=== PATIENT | female | born 1940 | race Hispanic/Latino ===

== ENCOUNTER 2017-11-30 09:18 | Inpatient (IN) | payer MEDICARE ==
[2017-11-29 12:40] LABS: BASOPHILS # (AUTO) 0.1 (0.0-0.1); BASOPHILS % 0.7 % (0.0-1.0); EOSINOPHILS # (AUTO) 0.2 (0.0-0.4); EOSINOPHILS % 2.4 % (0.0-6.0); HEMATOCRIT 37.1 % (34.2-44.1); HEMOGLOBIN 12.4 g/dL (12.0-16.0); LYMPHOCYTES # (AUTO) 2.3 (1.0-3.2); LYMPHOCYTES % 32.9 % (18.0-39.1); MEAN CORPUSCULAR HEMOGLOBIN 29.5 pg (28-32); MEAN CORPUSCULAR HGB CONC 33.4 g/dL (31-35); MEAN CORPUSCULAR VOLUME 88.3 fL (81-99); MONOCYTES # (AUTO) 0.5 (0.2-0.8); MONOCYTES % 6.9 % (4.4-11.3); PLATELET COUNT 323 x10e3/uL (140-360); RED CELL DISTRIBUTION WIDTH 12.3 % (11.7-14.4)
[2017-11-29 13:04] LABS: ANION GAP 11.3 mmol/L (8-16); CALCIUM 10.2 mg/dL (8.4-10.2); CREATININE, SERUM 1.05 mg/dL (0.57-1.11); POTASSIUM 4.3 mmol/L (3.5-5.1)
--- NOTE | 2017-11-29 14:38 | Diagnostic Imaging Report ---
PROCEDURE:CHEST 2 VIEWS TECHNIQUE:PA and lateral chest INDICATION:Preoperative evaluation for hip surgery COMPARISON:None. FINDINGS: Lungs are clear and symmetrically inflated. No pleural effusions. Normal heart size, mediastinal contour, and pulmonary vasculature. Intact skeleton. CONCLUSION: Normal chest. Dictated by: Oleg Nino M.D. on 11/29/2017 at 14:41 Electronically approved by: Oleg Nino M.D. on 11/29/2017 at 14:41
[~2017-11-30 09:18] MED LIST: GLIPIZIDE ER5 MG PO; LOSARTAN POTAS100 MG PO; NIFEDIPINE ER30 M1 PO; NORTRIPTYLINE H25 MG PO; ROPIVACAINE 246.25 MG, EPINEPHRINE HCL 1:1000 0.5 MG, CLONIDINE HCL 0.08 MG, KETOROLAC ... INJ ONE; SIMVASTATIN20 MG PO
--- OUTSIDE RECORDS SUMMARY | 2017-11-30 09:21 | XMS REPORT ---
Author Author [facility] Address Unknown Phone Unavailable Care Team Providers Care Suspender Cutter Name Role Phone YESSI TRIVEDI Unavailable Unavailable Problems This patient has no known problems. Allergies, Adverse Reactions, Alerts This patient has no known allergies or adverse reactions. Medications This patient has no known medications. Results Test Description Test Time Test Comments Text Results Atomic Results Result Comments CHEST 2 VIEWS [place] [address] Patient Name: LISA DEL REAL MR #: [id number] : 1940 Age/Sex: 77/F Req #: [id number] Adm Physician: Ordered by: YESSI TRIVEDI MD Report #: [id number] Location: OR Room/Bed: Procedure: [id number] DX/CHEST 2 VIEWS Exam Date: 11/29/17 Exam Time: 1310 REPORT STATUS: Signed PROCEDURE: CHEST 2 VIEWS TECHNIQUE: PA and lateral chest INDICATION: Preoperative evaluation for hip surgery COMPARISON: None. FINDINGS: Lungs are clear and symmetrically inflated. No pleural effusions. Normal heart size, mediastinal contour, and pulmonary vasculature. Intact skeleton. CONCLUSION: Normal chest. Dictated by: Ilda Adams M.D. on 11/29/2017 at 14: 41 Electronically approved by: Ilda Adams M.D. on 11/29/2017 at 14:41 Dictated By: ILDA ADAMS MD [id number] Transcribed By: JESSICA on 11/29/17 1441 COPY TO: YESSI TRIVEDI MD
[2017-11-30] MEDS ORDERED: CEFAZOLIN SOD 2 GM/D5W 50ML 50 ML IV ONE (09:45)
[2017-11-30] MEDS ORDERED: CELECOXIB 200 MG CAP ONE (09:45)
[2017-11-30] MEDS ORDERED: GABAPENTIN 300 MG CAP ONE (09:45)
[2017-11-30] MEDS ORDERED: DEXAMETHASONE SOD PHOS 10 MG/1 ML VIAL ONE (09:45)
[2017-11-30] MEDS ORDERED: INSULIN REGULAR, HUMAN 100 UNIT/1 ML 3ML VIAL ONE ×2 (10:30→15:12)
[2017-11-30] MEDS ORDERED: TRANEXAMIC ACID 1,000 MG/10 ML ML ONE ×2 (10:55→12:48)
[2017-11-30] MEDS ORDERED: MUPIROCIN 2% OINT 22 GM TUBE ONE (10:55)
[2017-11-30] MEDS ORDERED: BACITRACIN 50,000 UNIT VIAL ONE (10:56)
[2017-11-30] MEDS ORDERED: LIDOCAINE 2% /EPINEPHRINE 20 ML SDV INJ ONE (12:24)
[2017-11-30] MEDS ORDERED: SODIUM CHLORIDE 0.9% 1000ML 1,000 ML IV SCH (13:20)
[2017-11-30] MEDS ORDERED: HYDROCODONE/APAP 5MG-325MG TAB PO PRN (13:30)
[2017-11-30] MEDS ORDERED: KETOROLAC TROMETHAMINE 30 MG/ML VIAL IV PRN (13:30)
[2017-11-30] MEDS ORDERED: ONDANSETRON HCL INJ 2 MG/ML VIAL IV PRN (13:30)
[2017-11-30] MEDS ORDERED: PROMETHAZINE HCL (IM) 25 MG/ML VIAL INJ PRN (13:30)
[2017-11-30] MEDS ORDERED: ACETAMINOPHEN 650 MG SUPP PR PRN (13:30)
[2017-11-30] MEDS ORDERED: DOCUSATE SODIUM 100 MG CAP PO PRN (13:30)
[2017-11-30] MEDS ORDERED: DIPHENHYDRAMINE HCL INJ 50 MG/ML VIAL IM/IV PRN (13:30)
[2017-11-30] MEDS ORDERED: HYDROCODONE/APAP 7.5MG-325MG 1 EA TAB PO PRN (13:30)
[2017-11-30] MEDS ORDERED: ZOLPIDEM TARTRATE 5 MG TAB PO PRN (13:30)
[2017-11-30] MEDS ORDERED: CEFAZOLIN SOD 1 GM/NS 50ML 50 ML IV SCH (14:00)
[2017-11-30 16:00] VITALS: BP 141/69
[2017-11-30 16:22] VITALS: BP 141/69
[2017-11-30] MEDS: ASPIRIN 325 MG TAB PO SCH (17:00)
[2017-11-30] MEDS: CELECOXIB 200 MG CAP PO SCH (17:00)
[2017-11-30] MEDS ORDERED: CELECOXIB 100 MG CAP PO SCH (17:00)
--- NOTE | 2017-11-30 17:10 | Diagnostic Imaging Report ---
PROCEDURE:X-RAY PELVIS, AP VIEW COMPARISON:None. INDICATIONS:S/P RT. TOTALHIP ARTHROPLASTY. FINDINGS: See Conclusion. CONCLUSION: 1. Status post right total hip replacement with intact hardware which appears in satisfactory alignment in this single view. 2. Associated postoperative soft tissue gas, drainage catheter and metallic gumaro in the soft tissues. 3. Rest of the bony structures is intact. No fractures, lytic or blastic lesions. Dave Vigil M.D. Dictated by: Dave Vigil M.D. on 11/30/2017 at 17:12 Electronically approved by: Dave Vigil M.D. on 11/30/2017 at 17:12
[2017-11-30] MEDS: ACETAMINOPHEN 1000 MG/100 ML IV SCH (18:00)
[2017-11-30] MEDS ORDERED: ONDANSETRON HCL INJ 2 MG/ML VIAL ONE (18:53)
[2017-11-30 20:00] VITALS: BP 152/70
[2017-11-30] MEDS: CEFAZOLIN SOD 1 GM VIAL IV SCH (20:00)
[2017-11-30 20:05] VITALS: BP 152/70
[2017-11-30] MEDS ORDERED: MIDAZOLAM HCL 2 MG/2 ML VIAL ONE (20:15)
[2017-11-30] MEDS ORDERED: KETAMINE HCL INJ 50 MG/ML 10 ML VIAL ONE (20:15)
[2017-11-30] MEDS ORDERED: FENTANYL CITRATE/PF 100MCG/2 ML INJ ONE (20:15)
[2017-12-01] VITALS: BP 113/60
[2017-12-01] MEDS: ACETAMINOPHEN 1000 MG/100 ML IV SCH ×3 (00:03→12:13)
[2017-12-01 04:00] VITALS: BP 132/60
[2017-12-01] MEDS: CEFAZOLIN SOD 1 GM VIAL IV SCH ×2 (04:35→12:13)
[2017-12-01 06:46] LABS: HEMATOCRIT 33.1 % (34.2-44.1); HEMOGLOBIN 11.1 g/dL (12.0-16.0)
[2017-12-01 07:20] VITALS: BP 139/63
[2017-12-01 08:05] VITALS: BP 139/63
[2017-12-01] MEDS ORDERED: ASPIRIN325 MG PO (08:59)
[2017-12-01] MEDS ORDERED: GLIPIZIDE 5 MG TAB ER PO SCH (09:00)
[2017-12-01] MEDS: ASPIRIN 325 MG TAB PO SCH (09:49)
[2017-12-01] MEDS: CELECOXIB 200 MG CAP PO SCH (09:49)
--- NOTE | 2017-12-01 10:04 | Operative Report ---
DATE OF PROCEDURE: November 30, 2017 PREOPERATIVE DIAGNOSIS: Osteoarthritis, right hip. POSTOPERATIVE DIAGNOSIS: Osteoarthritis, right hip. PROCEDURE: Right total hip arthroplasty. FIBERGLASS FABRICATOR: Joel Del Rosario PA-C The patient was brought to the operating room for induction of anesthesia. Throughout this case, my PA's assistance was necessary for retraction of soft tissue and positioning of the extremity. This allows for efficient and technically successful execution of the operation and is considered medically necessary. 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 She has failed conservative management and would like to proceed with a right total hip replacement. The risks and benefits of the procedure have been explained. All of her questions have been answered. She states she understands and wishes to proceed. DESCRIPTION OF PROCEDURE: The patient was brought to the operating room and given a spinal anesthetic. She received prophylactic antibiotics and tranexamic acid in the holding area. She was positioned in the left lateral decubitus position. Her right hip was prepped and draped in a sterile manner. A preoperative time out was performed. A limited incision posterior approach was made to the right hip. Hemostasis was obtained with electrocautery. Abundant subcutaneous adipose was encountered. A self-retaining deep Charnley retractor was placed. Care was taken to avoid injury to the sciatic nerve. The posterior capsule and short external rotators were carefully exposed. Additional hemostasis was obtained with electrocautery. The posterior capsule was released and the hip was dislocated. An oscillating saw was used to resect the femoral head. A complete loss of articular cartilage was noted. Acetabular retractors were carefully placed. The labral remnant was removed with a long-handle knife. The true floor of the acetabulum was then established with a 44-mm reamer. The socket was then carefully reamed up to 51 mm. This accomplished bleeding hemispherical cancellous bone. Two small subchondral cysts were debrided in the superior dome of the socket. The hip was thoroughly irrigated with a shower-tip pulsatile lavage. A [employer] Osseo[employer] acetabular socket was then seated. This had a 52-mm outer diameter. Fixation was good when augmented with a single 20-mm screw placed into the ilium. A highly cross-linked polyethylene liner with a 36-mm inner diameter was then seated into place. Care was taken to make sure that there was no evidence of soft tissue interposition. A portion of a 100 mL premixed pericapsular injection was then placed around this socket. The socket was placed with a moistly soaked lap sponge and attention was directed towards the proximal femur. A box-cutting osteotome and taper pin reamer was used to establish entry to the femoral canal. The [employer] Taperloc broaches were then impacted. A size 9 stem had good stability for trial reductions. A -3 femoral head was felt to provide optimal soft tissue balancing, adventism of limb length, and stability. The hip was put through a full arc of motion and had good stability. The trial implants were removed. The hip was further irrigated with a shower-tip pulsatile lavage. The implants were seated and a final reduction was performed. A 36-mm ceramic head was used. The remainder of the pericapsular injection was placed into the soft tissue. The posterior capsule was then carefully repaired with #2 Ethibond. The short external rotators were contracted and not repairable. The gluteal fascia was then closed with interrupted #2 Ethibond. The skin was closed with subcuticular Vicryl and gumaro. A sterile bandage was applied. The patient was returned to the supine position and transported to the recovery room in stable condition. Job#: [id number] DR NEVAREZ
[2017-12-01 12:42] VITALS: BP 143/82
[2017-12-01] MEDS ORDERED: ACETAMINOPHEN 1000 MG/100 ML IV PRN (13:30)
[2017-12-01 16:25] VITALS: BP 148/67
[2017-12-01] MEDS ORDERED: NIFEDIPINE CR 30 MG TAB PO SCH (21:00)
[2017-12-01] MEDS ORDERED: LOSARTAN POTASSIUM 100 MG TAB PO SCH (21:00)
[2017-12-01] MEDS ORDERED: SIMVASTATIN 20 MG TAB PO SCH (21:00)
[2017-12-01] MEDS ORDERED: NORTRIPTYLINE HCL 25 MG CAP PO SCH (21:00)
== END 2017-12-01 15:45 | disposition home health service (06) | DRG 470 ==
LOC: OR 09:18 → MED/SURG 15:01
PROVIDERS: ADMIT Specialist; ATTEND Specialist
PROC: 0SR904A Replacement of Right Hip Joint with Ceramic on Polyethylene Synthetic Substitute, Uncemented, Open Approach (ICD-10-PCS; principal; 2017-11-30 11:55)
DX: M16.11 Unilateral primary osteoarthritis, right hip (principal); M17.11 Unilateral primary osteoarthritis, right knee; I10 Essential (primary) hypertension; D64.9 Anemia, unspecified; E11.9 Type 2 diabetes mellitus without complications; Z79.4 Long term (current) use of insulin; Z86.73 Personal history of transient ischemic attack (TIA), and cerebral infarction without residual deficits
CPT/HCPCS: 36415; 71046; 72170; 80048; 82948; 85014; 85018; 85025; 93005; J0171; J0690; J1100; J1885; J2001; J2250; J2405; J2795

== ENCOUNTER 2020-06-29 11:36 | Emergency (ER) | payer MEDICARE, OTHER ==
[~2020-06-29] VITALS: Ht 157.5 cm; Wt 75.7 kg
[~2020-06-29 11:36] MED LIST changes: +ASPIRIN325 MG PO; -ROPIVACAINE 246.25 MG, EPINEPHRINE HCL 1:1000 0.5 MG, CLONIDINE HCL 0.08 MG, KETOROLAC ... INJ ONE
[2020-06-29] MEDS ORDERED: SODIUM CHLORIDE 0.9% 1000ML 1,000 ML IV STA (12:00)
[2020-06-29] MEDS ORDERED: ONDANSETRON HCL INJ 2MG/ML 2ML 2 MG/ML VIAL IV STA (12:00)
[2020-06-29] MEDS ORDERED: MORPHINE SULFATE INJ 4 MG/ML INJ 1ML IV PRN (12:00)
[2020-06-29] MEDS ORDERED: CLONIDINE HCL0.1 MG PO (12:13)
[2020-06-29] MEDS ORDERED: CLONIDINE HCL 0.2 MG TAB PO ONE (12:15)
== END 2020-06-29 14:15 | disposition home or self-care (01) ==
LOC: ER 12:00
DX: I10 Essential (primary) hypertension (principal); E11.9 Type 2 diabetes mellitus without complications
CPT/HCPCS: 99283

== ENCOUNTER 2020-07-04 20:28 | Emergency (ER) | payer MEDICARE, OTHER ==
[~2020-07-04] VITALS: Ht 157.5 cm; Wt 75.7 kg
[~2020-07-04 20:28] MED LIST changes: +CLONIDINE HCL0.1 MG PO
[2020-07-04] MEDS ORDERED: AMLODIPINE BESYLATE 5 MG TAB PO ONE ×2 (20:45→22:45)
[2020-07-04 21:01] LABS: BASOPHILS % 0.6 % (0.0-1.0); EOSINOPHILS # (AUTO) 0.2 (0.0-0.4); EOSINOPHILS % 2.7 % (0.0-6.0); HEMATOCRIT 37.1 % (34.2-44.1); HEMOGLOBIN 12.7 g/dL (12.0-16.0); LYMPHOCYTES # (AUTO) 2.2 (1.0-3.2); LYMPHOCYTES % 33.9 % (18.0-39.1); MEAN CORPUSCULAR HEMOGLOBIN 28.7 pg (28-32); MEAN CORPUSCULAR HGB CONC 34.2 g/dL (31-35); MEAN CORPUSCULAR VOLUME 83.9 fL (81-99); MONOCYTES # (AUTO) 0.6 (0.2-0.8); MONOCYTES % 9.2 % (4.4-11.3); NEUTROPHILS # (AUTO) 3.5 (2.1-6.9); NEUTROPHILS % 53.1 % (38.7-80.0); PLATELET COUNT 317 x10e3/uL (140-360); RED BLOOD COUNT 4.42 x10e6/uL (3.6-5.1); RED CELL DISTRIBUTION WIDTH 13.2 % (11.7-14.4)
[2020-07-04 21:02] LABS: CLARITY,URINE SL CLOUDY (CLEAR); COLOR,URINE YELLOW (YELLOW); LEUKOCYTE ESTERASE ,URINE MODERATE (NEGATIVE); NITRITE,URINE NEGATIVE (NEGATIVE); PROTEIN,URINE DIPSTICK 1+ (NEGATIVE)
[2020-07-04 21:03] LABS: KETONES,URINE 1+ (NEGATIVE); URINE UROBILINOGEN 2 mg/dL (0.2 - 1)
[2020-07-04 21:16] LABS: AMORPHOUS SEDIMENT,URINE MODERATE (FEW); BACTERIA,URINE MODERATE /HPF; EPITHELIAL CELLS,URINE FEW /LPF; MUCUS,URINE MODERATE (RARE); RBC,URINE 0-5 /HPF (0-5)
[2020-07-04 21:20] LABS: ALBUMIN 3.7 g/dL (3.5-5.0); ALBUMIN/GLOBULIN RATIO 1.3 (0.8-2.0); ANION GAP 12.2 mmol/L (8-16); CALCIUM 9.1 mg/dL (8.4-10.2); CREATININE, SERUM 1.03 mg/dL (0.57-1.11); POTASSIUM 4.2 mmol/L (3.5-5.1)
[2020-07-04] MEDS ORDERED: CEFTRIAXONE SOD 1 GM/NS 50 ML 50 ML IV ONE (22:00)
[2020-07-04] MEDS ORDERED: SODIUM CHLORIDE 0.9% 500ML 500 ML IV STA (22:41)
[2020-07-05] MEDS ORDERED: KEFLEX500 MG PO (00:19)
[2020-07-05 00:29] VITALS: BP 164/57
== END 2020-07-05 00:37 | disposition home or self-care (01) ==
LOC: ER 20:58
DX: N39.0 Urinary tract infection, site not specified (principal); E11.65 Type 2 diabetes mellitus with hyperglycemia; I10 Essential (primary) hypertension; R07.89 Other chest pain; E03.9 Hypothyroidism, unspecified
CPT/HCPCS: 36415; 70450; 71045; 80053; 81001; 83690; 84484; 85025; 87086; 93005; 99284; J0696; J7040

== ENCOUNTER 2020-08-21 21:33 | Inpatient (IN) | payer MEDICARE, OTHER ==
[~2020-08-21] VITALS: Ht 157.5 cm; Wt 75.7 kg
[~2020-08-21 21:33] MED LIST changes: +KEFLEX500 MG PO
[2020-08-21] MEDS ORDERED: MORPHINE SULFATE INJ 4 MG/ML INJ 1ML IV STA (21:57)
[2020-08-21] MEDS ORDERED: SODIUM CHLORIDE 0.9% 1000ML 1,000 ML IV STA (21:57)
[2020-08-21] MEDS ORDERED: ONDANSETRON HCL INJ 2MG/ML 2ML 2 MG/ML VIAL IV STA (21:57)
[2020-08-21 22:04] LABS: BASOPHILS % 0.4 % (0.0-1.0); EOSINOPHILS # (AUTO) 0.1 (0.0-0.4); EOSINOPHILS % 1.1 % (0.0-6.0); HEMATOCRIT 42.1 % (34.2-44.1); HEMOGLOBIN 14.5 g/dL (12.0-16.0); LYMPHOCYTES # (AUTO) 1.8 (1.0-3.2); LYMPHOCYTES % 23.6 % (18.0-39.1); MEAN CORPUSCULAR HEMOGLOBIN 28.5 pg (28-32); MEAN CORPUSCULAR HGB CONC 34.4 g/dL (31-35); MEAN CORPUSCULAR VOLUME 82.9 fL (81-99); MONOCYTES # (AUTO) 0.6 (0.2-0.8); MONOCYTES % 7.4 % (4.4-11.3); NEUTROPHILS % 67.2 % (38.7-80.0); PLATELET COUNT 336 x10e3/uL (140-360); RED BLOOD COUNT 5.08 x10e6/uL (3.6-5.1); RED CELL DISTRIBUTION WIDTH 12.4 % (11.7-14.4)
[2020-08-21 22:29] LABS: ALBUMIN 4.1 g/dL (3.5-5.0); ALBUMIN/GLOBULIN RATIO 1.3 (0.8-2.0); ANION GAP 17.1 mmol/L (8-16); CALCIUM 9.3 mg/dL (8.4-10.2); CREATININE, SERUM 0.92 mg/dL (0.57-1.11); POTASSIUM 4.1 mmol/L (3.5-5.1)
[2020-08-21 22:35] LABS: CREATINE KINASE MB 4.8 ng/mL (0-5.0)
[2020-08-21] MEDS ORDERED: IOPAMIDOL 370 MG/ML 200 ML INFUS..BTL INJ ONE (22:58)
[2020-08-21] MEDS ORDERED: SODIUM CHLORIDE 0.9% 50ML 50 ML ONE (22:58)
[2020-08-21] MEDS ORDERED: MORPHINE SULFATE INJ 4 MG/ML INJ 1ML IV PRN (23:45)
[2020-08-22] VITALS (10 sets, daily range): BP systolic 143–176; BP diastolic 46–57
[2020-08-22] MEDS ORDERED: ONDANSETRON HCL INJ 2MG/ML 2ML 2 MG/ML VIAL IV PRN
[2020-08-22 01:12] LABS: CLARITY,URINE SL CLOUDY (CLEAR); COLOR,URINE YELLOW (YELLOW); KETONES,URINE 2+ (NEGATIVE); LEUKOCYTE ESTERASE ,URINE SMALL (NEGATIVE); NITRITE,URINE NEGATIVE (NEGATIVE); PROTEIN,URINE DIPSTICK >=300 (NEGATIVE); URINE UROBILINOGEN 1 mg/dL (0.2 - 1)
[2020-08-22 01:20] LABS: BACTERIA,URINE FEW /HPF; EPITHELIAL CELLS,URINE MODERATE /LPF; MUCUS,URINE MODERATE (RARE); WBC,URINE (MAN) 21-50 /HPF (0-5)
[2020-08-22] MEDS ORDERED: HYDRALAZINE HCL 20 MG/ML VIAL IV STA (01:20)
[2020-08-22] MEDS: SODIUM CHLORIDE 0.9% 1000ML 1,000 ML IV SCH ×3 (02:18→16:00)
[2020-08-22] MEDS ORDERED: HYDRALAZINE HCL 20 MG/ML VIAL IV PRN (03:15)
[2020-08-22 07:15] LABS: BASOPHILS % 0.5 % (0.0-1.0); EOSINOPHILS # (AUTO) 0.1 (0.0-0.4); EOSINOPHILS % 1.7 % (0.0-6.0); HEMATOCRIT 36.4 % (34.2-44.1); HEMOGLOBIN 12.5 g/dL (12.0-16.0); LYMPHOCYTES # (AUTO) 2.1 (1.0-3.2); LYMPHOCYTES % 28.6 % (18.0-39.1); MEAN CORPUSCULAR HEMOGLOBIN 28.4 pg (28-32); MEAN CORPUSCULAR HGB CONC 34.3 g/dL (31-35); MEAN CORPUSCULAR VOLUME 82.7 fL (81-99); MONOCYTES # (AUTO) 0.7 (0.2-0.8); MONOCYTES % 9.6 % (4.4-11.3); NEUTROPHILS # (AUTO) 4.4 (2.1-6.9); NEUTROPHILS % 59.2 % (38.7-80.0); PLATELET COUNT 305 x10e3/uL (140-360); RED CELL DISTRIBUTION WIDTH 12.6 % (11.7-14.4)
[2020-08-22] MEDS ORDERED: DOCUSATE SODIUM 100 MG CAP PO PRN (07:30)
[2020-08-22 07:40] LABS: ALANINE AMINOTRANSFERASE 17 IU/L (0-55); ALBUMIN 3.4 g/dL (3.5-5.0); ALBUMIN/GLOBULIN RATIO 1.4 (0.8-2.0); ALKALINE PHOSPHATASE 63 IU/L (40-150); ANION GAP 10.6 mmol/L (8-16); BLOOD UREA NITROGEN 8 mg/dL (7-26); BUN/CREATININE RATIO 10 (6-25); CALCIUM 8.5 mg/dL (8.4-10.2); CARBON DIOXIDE 22 mmol/L (22-29); CHLORIDE 100 mmol/L (98-107); CREATININE, SERUM 0.81 mg/dL (0.57-1.11); EST GLOMERULAR FILTRATION RATE > 60 ML/MIN (60-); GLUCOSE 86 mg/dL (74-118); POTASSIUM 3.6 mmol/L (3.5-5.1); SODIUM 129 mmol/L (136-145)
[2020-08-22 07:49] LABS: CREATINE KINASE MB 3.6 ng/mL (0-5.0)
[2020-08-22 08:07] LABS: CHOL/HDL RATIO 6.2 (3.0-3.6)
[2020-08-22] MEDS: CEFTRIAXONE SOD 1 GM in SODIUM CHLORIDE 0.9% 50ML 50 ML IV SCH (08:59)
[2020-08-22] MEDS: NIFEDIPINE CR 30 MG TAB PO SCH ×2 (09:00→21:48)
[2020-08-22 15:47] LABS: CREATINE KINASE MB 2.5 ng/mL (0-5.0)
[2020-08-22] MEDS ORDERED: NIFEDIPINE CR 30 MG TAB PO SCH (21:00)
[2020-08-22] MEDS ORDERED: ZOLPIDEM TARTRATE 5 MG TAB PO PRN (21:00)
[2020-08-22] MEDS: SIMVASTATIN 20 MG TAB PO SCH (21:49)
[2020-08-22] MEDS: NORTRIPTYLINE HCL 25 MG CAP PO SCH (21:49)
[2020-08-23 04:03] VITALS: BP 136/48
[2020-08-23] MEDS: SODIUM CHLORIDE 0.9% 1000ML 1,000 ML IV SCH ×3 (08:00→13:37)
[2020-08-23 08:10] VITALS: BP 136/48
[2020-08-23 08:55] VITALS: BP 124/41
[2020-08-23] MEDS: NIFEDIPINE CR 30 MG TAB PO SCH ×2 (09:00→16:38)
[2020-08-23] MEDS: CEFTRIAXONE SOD 1 GM in SODIUM CHLORIDE 0.9% 50ML 50 ML IV SCH (09:02)
[2020-08-23 12:00] VITALS: BP 124/41
[2020-08-23] MEDS ORDERED: FENTANYL CITRATE/PF 100MCG/2 ML INJ ONE (12:10)
[2020-08-23] MEDS ORDERED: PROPOFOL IV EMULSION 10 MG/ML 20 ML VIAL ONE (17:38)
[2020-08-23 20:00] VITALS: BP 149/43
[2020-08-23 21:00] VITALS: BP 149/43
[2020-08-23] MEDS: SIMVASTATIN 20 MG TAB PO SCH (21:01)
[2020-08-23] MEDS: NORTRIPTYLINE HCL 25 MG CAP PO SCH (21:01)
[2020-08-24] VITALS: BP 141/49
[2020-08-24] MEDS: SODIUM CHLORIDE 0.9% 1000ML 1,000 ML IV SCH ×2 (00:30→08:58)
[2020-08-24 04:00] VITALS: BP 146/53
[2020-08-24 08:00] VITALS: BP 136/45
[2020-08-24 08:02] VITALS: BP 146/53
[2020-08-24] MEDS: CEFTRIAXONE SOD 1 GM in SODIUM CHLORIDE 0.9% 50ML 50 ML IV SCH (08:58)
[2020-08-24 12:00] VITALS: BP 176/59
[2020-08-24] MEDS: NIFEDIPINE CR 30 MG TAB PO SCH (12:00)
[2020-08-24] MEDS ORDERED: SODIUM CHLORIDE1 GM PO (15:16)
[2020-08-24] MEDS ORDERED: NIFEDIPINE ER30 M1 PO (15:16)
== END 2020-08-24 16:52 | disposition home or self-care (01) | DRG 392 ==
LOC: ER 21:57 → ERHOLD 23:46 → MED/SURG2 08-22 03:15
PROVIDERS: ADMIT Internal Medicine; ATTEND Internal Medicine
PROC: 0DB68ZX Excision of Stomach, Via Natural or Artificial Opening Endoscopic, Diagnostic (ICD-10-PCS; 2020-08-23)
PROC: 0D758ZZ Dilation of Esophagus, Via Natural or Artificial Opening Endoscopic (ICD-10-PCS; 2020-08-23)
PROC: 0DB98ZX Excision of Duodenum, Via Natural or Artificial Opening Endoscopic, Diagnostic (ICD-10-PCS; principal; 2020-08-23 13:00)
PROC: 0DB78ZX Excision of Stomach, Pylorus, Via Natural or Artificial Opening Endoscopic, Diagnostic (ICD-10-PCS; 2020-08-23 13:00)
DX: K20.90 Esophagitis, unspecified without bleeding (principal); E87.1 Hypo-osmolality and hyponatremia; N17.9 Acute kidney failure, unspecified; N39.0 Urinary tract infection, site not specified; K29.70 Gastritis, unspecified, without bleeding; E11.9 Type 2 diabetes mellitus without complications; K52.9 Noninfective gastroenteritis and colitis, unspecified; I10 Essential (primary) hypertension; E03.9 Hypothyroidism, unspecified; K31.7 Polyp of stomach and duodenum; K63.5 Polyp of colon
CPT/HCPCS: 36415; 43239; 43450; 71045; 74177; 80053; 80061; 81001; 82550; 82553; 82948; 83036; 83690; 83880; 84295; 84484; 85025; 88305; 88312; 93005; 96361; 99284; J0360; J0696; J2405; J3010; J7030; Q9967; U0002

== ENCOUNTER 2021-09-06 21:19 | Inpatient (IN) | payer MEDICARE, OTHER ==
[~2021-09-06] VITALS: Ht 157.5 cm; Wt 75.7 kg
[~2021-09-06 21:19] MED LIST changes: +SODIUM CHLORIDE1 GM PO
[2021-09-06] MEDS ORDERED: HYDRALAZINE HCL 20 MG/ML VIAL IV STA ×2 (21:34→22:49)
[2021-09-06 21:36] LABS: BASOPHILS % 0.1 % (0.0-1.0); HEMATOCRIT 33.8 % (34.2-44.1); HEMOGLOBIN 11.6 g/dL (12.0-16.0); LYMPHOCYTES # (AUTO) 1.5 (1.0-3.2); LYMPHOCYTES % 10.8 % (18.0-39.1); MEAN CORPUSCULAR HEMOGLOBIN 29.3 pg (28-32); MEAN CORPUSCULAR HGB CONC 34.3 g/dL (31-35); MEAN CORPUSCULAR VOLUME 85.4 fL (81-99); MONOCYTES # (AUTO) 0.9 (0.2-0.8); NEUTROPHILS # (AUTO) 11.8 (2.1-6.9); NEUTROPHILS % 82.4 % (38.7-80.0); PLATELET COUNT 315 x10e3/uL (140-360); RED BLOOD COUNT 3.96 x10e6/uL (3.6-5.1); RED CELL DISTRIBUTION WIDTH 12.6 % (11.7-14.4)
[2021-09-06 21:45] LABS: INR 0.89; PARTIAL THROMBOPLASTIN TIME 23.3 seconds (23.8-35.5); PROTHROMBIN TIME 12.9 seconds (11.9-14.5)
[2021-09-06] MEDS ORDERED: HYDRALAZINE HCL 20 MG/ML VIAL ONE (21:50)
[2021-09-06 21:54] LABS: ALBUMIN 3.6 g/dL (3.5-5.0); ALBUMIN/GLOBULIN RATIO 1.1 (0.8-2.0); ANION GAP 10.2 mmol/L (8-16); CALCIUM 9.8 mg/dL (8.4-10.2); CREATININE, SERUM 1.23 mg/dL (0.57-1.11); POTASSIUM 4.2 mmol/L (3.5-5.1)
[2021-09-06 22:01] LABS: CREATINE KINASE MB 2.7 ng/mL (0-5.0)
[2021-09-06 22:20] LABS: CLARITY,URINE CLEAR (CLEAR); COLOR,URINE STRAW (YELLOW); KETONES,URINE NEGATIVE (NEGATIVE); LEUKOCYTE ESTERASE ,URINE TRACE (NEGATIVE); NITRITE,URINE NEGATIVE (NEGATIVE); PROTEIN,URINE DIPSTICK 2+ (NEGATIVE); URINE UROBILINOGEN 0.2 mg/dL (0.2 - 1)
[2021-09-06 22:21] LABS: BACTERIA,URINE MODERATE /HPF; EPITHELIAL CELLS,URINE MANY /LPF; RENAL EPITHELIAL CELLS,URINE MODERATE
[2021-09-06] MEDS ORDERED: IOPAMIDOL 370 MG/ML 200 ML INFUS..BTL INJ ONE (22:37)
[2021-09-06] MEDS ORDERED: SODIUM CHLORIDE 0.9% 50ML 50 ML ONE (22:38)
[2021-09-06] MEDS ORDERED: Morphine 4mg Syringe 4 MG/ML INJ IV ONE (23:30)
[2021-09-06] MEDS ORDERED: FUROSEMIDE INJ 10 MG/ML 4 ML VIAL IV ONE (23:30)
[2021-09-06] MEDS ORDERED: CEFTRIAXONE 1 GM in SODIUM CHLORIDE 0.9% 50ML 50 ML IV ONE (23:30)
[2021-09-07] VITALS (8 sets, daily range): BP systolic 146–193; BP diastolic 39–64
[2021-09-07] MEDS ORDERED: ASPIRIN 325 MG TAB PO ONE (00:30)
[2021-09-07] MEDS ORDERED: ONDANSETRON HCL INJ 2MG/ML 2ML 2 MG/ML VIAL IV PRN (00:30)
[2021-09-07] MEDS ORDERED: OLMESARTAN-HCT1 EAC2 PO (01:55)
[2021-09-07] MEDS ORDERED: LEVOTHYROXINE25 MC1 PO (01:55)
[2021-09-07] MEDS ORDERED: PANTOPRAZOLE SO40 MG PO (01:55)
[2021-09-07] MEDS ORDERED: METOPROLOL SUCC50 MG PO (01:55)
[2021-09-07] MEDS ORDERED: Morphine 2mg Syringe 2 MG/ML SYR IV PRN (03:00)
[2021-09-07] MEDS: HYDRALAZINE HCL 20 MG/ML VIAL IV PRN (03:08)
[2021-09-07 08:01] LABS: CREATINE KINASE MB 2.1 ng/mL (0-5.0)
[2021-09-07] MEDS ORDERED: DOCUSATE SODIUM 100 MG CAP PO PRN (09:45)
[2021-09-07] MEDS ORDERED: ACETAMINOPHEN 325 MG TAB PO PRN (09:45)
[2021-09-07 10:07] LABS: CHOL/HDL RATIO 3.2 (3.0-3.6)
[2021-09-07 16:09] LABS: CREATINE KINASE MB 1.4 ng/mL (0-5.0)
[2021-09-07] MEDS: ENOXAPARIN SOD INJ 40 MG/0.4 ML SYR SC SCH (17:31)
[2021-09-07] MEDS: FUROSEMIDE INJ 10 MG/ML 2 ML VIAL IV SCH (17:31)
[2021-09-07] MEDS ORDERED: FUROSEMIDE INJ 10 MG/ML 2 ML VIAL IV SCH (18:00)
[2021-09-07] MEDS ORDERED: SIMVASTATIN 20 MG TAB PO SCH (21:00)
[2021-09-07] MEDS: ATORVASTATIN 40 MG TAB PO SCH (21:34)
[2021-09-08] VITALS (8 sets, daily range): BP systolic 147–185; BP diastolic 43–64
[2021-09-08 04:44] LABS: BASOPHILS % 0.1 % (0.0-1.0); EOSINOPHILS % 0.1 % (0.0-6.0); HEMATOCRIT 33.7 % (34.2-44.1); HEMOGLOBIN 11.4 g/dL (12.0-16.0); LYMPHOCYTES # (AUTO) 1.3 (1.0-3.2); LYMPHOCYTES % 14.3 % (18.0-39.1); MEAN CORPUSCULAR HEMOGLOBIN 28.9 pg (28-32); MEAN CORPUSCULAR HGB CONC 33.8 g/dL (31-35); MEAN CORPUSCULAR VOLUME 85.3 fL (81-99); MONOCYTES # (AUTO) 0.8 (0.2-0.8); MONOCYTES % 8.3 % (4.4-11.3); NEUTROPHILS # (AUTO) 7.2 (2.1-6.9); NEUTROPHILS % 76.6 % (38.7-80.0); PLATELET COUNT 277 x10e3/uL (140-360); RED BLOOD COUNT 3.95 x10e6/uL (3.6-5.1); RED CELL DISTRIBUTION WIDTH 12.6 % (11.7-14.4)
[2021-09-08 05:08] LABS: ANION GAP 12.6 mmol/L (8-16); CALCIUM 9.1 mg/dL (8.4-10.2); CREATININE, SERUM 1.2 mg/dL (0.57-1.11); POTASSIUM 3.6 mmol/L (3.5-5.1)
[2021-09-08] MEDS: LEVOTHYROXINE SODIUM 25 MCG TABLET PO SCH (05:57)
[2021-09-08] MEDS: PANTOPRAZOLE SOD 40 MG TABEC PO SCH (05:57)
[2021-09-08] MEDS: FUROSEMIDE INJ 10 MG/ML 2 ML VIAL IV SCH ×2 (06:15→16:58)
[2021-09-08] MEDS: CEFTRIAXONE 1 GM in SODIUM CHLORIDE 0.9% 50ML 50 ML IV SCH (08:32)
[2021-09-08] MEDS ORDERED: SODIUM CHLORIDE 0.9% 250ML 250 ML ONE (08:51)
[2021-09-08] MEDS ORDERED: METOPROLOL SUCCINATE 50 MG TAB XL PO SCH (09:00)
[2021-09-08] MEDS: ASPIRIN 81 MG ENTERIC COATED PO SCH (10:49)
[2021-09-08] MEDS: HYDRALAZINE HCL 20 MG/ML VIAL IV PRN (10:53)
[2021-09-08] MEDS: HYDRALAZINE HCL 25 MG TAB PO SCH ×2 (14:45→21:49)
[2021-09-08] MEDS ORDERED: INSULIN LISPRO 100 UNIT/1 ML 3ML VIAL SQ ONE (16:45)
[2021-09-08] MEDS ORDERED: DEXTROSE 50% SYRINGE 50 ML IV PRN (16:45)
[2021-09-08] MEDS: INSULIN LISPRO 100 UNIT/1 ML 3ML VIAL SQ SCH ×3 (16:57→21:00)
[2021-09-08] MEDS: ENOXAPARIN SOD INJ 40 MG/0.4 ML SYR SC SCH (16:57)
[2021-09-08] MEDS: ATORVASTATIN 40 MG TAB PO SCH (21:49)
[2021-09-09] VITALS: BP 151/60
[2021-09-09 04:00] VITALS: BP 166/67
[2021-09-09] MEDS: LEVOTHYROXINE SODIUM 25 MCG TABLET PO SCH (06:16)
[2021-09-09] MEDS: FUROSEMIDE INJ 10 MG/ML 2 ML VIAL IV SCH ×2 (06:16→17:50)
[2021-09-09] MEDS: PANTOPRAZOLE SOD 40 MG TABEC PO SCH (07:30)
[2021-09-09] MEDS: INSULIN LISPRO 100 UNIT/1 ML 3ML VIAL SQ SCH ×3 (07:30→16:03)
[2021-09-09] MEDS ORDERED: METOPROLOL SUCCINATE 25 MG TAB XL PO SCH (09:00)
[2021-09-09] MEDS: HYDRALAZINE HCL 25 MG TAB PO SCH ×2 (09:00→14:39)
[2021-09-09 09:05] VITALS: BP 154/68
[2021-09-09] MEDS: CEFTRIAXONE 1 GM in SODIUM CHLORIDE 0.9% 50ML 50 ML IV SCH (09:09)
[2021-09-09 12:14] VITALS: BP 149/72
[2021-09-09] MEDS ORDERED: REGADENOSON 0.4 MG/5 ML SYR IV ONE (13:16)
[2021-09-09] MEDS ORDERED: AMINOPHYLLINE INJ 25 MG/ML 20 ML VIAL IV ONE (14:07)
[2021-09-09] MEDS: ASPIRIN 81 MG ENTERIC COATED PO SCH (14:38)
[2021-09-09 16:15] VITALS: BP 150/81
[2021-09-09] MEDS: ENOXAPARIN SOD INJ 40 MG/0.4 ML SYR SC SCH (17:15)
[2021-09-09 20:00] VITALS: BP 153/61
[2021-09-09] MEDS ORDERED: CEPHALEXIN500 MG PO (20:12)
[2021-09-09] MEDS ORDERED: ASPIRIN EC81 MG PO (20:12)
[2021-09-09] MEDS ORDERED: Atorvastatin PO (20:12)
== END 2021-09-09 22:23 | disposition home or self-care (01) | DRG 871 ==
LOC: ER 21:35 → ERHOLD 09-07 00:35 → MED/SURG 09-07 01:13
PROVIDERS: ADMIT Internal Medicine; ATTEND Internal Medicine
DX: A41.9 Sepsis, unspecified organism (principal); I50.33 Acute on chronic diastolic (congestive) heart failure; N17.9 Acute kidney failure, unspecified; N39.0 Urinary tract infection, site not specified; R65.20 Severe sepsis without septic shock; I12.9 Hypertensive chronic kidney disease with stage 1 through stage 4 chronic kidney disease, or unspecified chronic kidney disease; N18.30 Chronic kidney disease, stage 3 unspecified; Z96.641 Presence of right artificial hip joint; E03.9 Hypothyroidism, unspecified; E11.9 Type 2 diabetes mellitus without complications; I16.0 Hypertensive urgency; R00.1 Bradycardia, unspecified; Z79.4 Long term (current) use of insulin
CPT/HCPCS: 36415; 71045; 71260; 78452; 80048; 80053; 80061; 81001; 82550; 82553; 82948; 83036; 83605; 83880; 84484; 85025; 85610; 85730; 93005; 93017; 93306; 94799; 99284; A9502; J0280; J0360; J0696; J1650; J1940; J2270; J7050; Q9967; U0002

== ENCOUNTER 2022-12-09 13:44 | Outpatient (RCR) | payer OTHER ==
[~2022-12-09 13:44] MED LIST changes: +ASPIRIN EC81 MG PO; +Atorvastatin PO; +CEPHALEXIN500 MG PO; +LEVOTHYROXINE25 MC1 PO; +METOPROLOL SUCC50 MG PO; +OLMESARTAN-HCT1 EAC2 PO; +PANTOPRAZOLE SO40 MG PO
== END 2022-12-25 ==
LOC: PT 13:44
PROVIDERS: ATTEND Physician Assistant
DX: M75.122 Complete rotator cuff tear or rupture of left shoulder, not specified as traumatic (principal); M25.512 Pain in left shoulder; M25.612 Stiffness of left shoulder, not elsewhere classified; M62.81 Muscle weakness (generalized)